=== PATIENT | female | born 1960 | race Caucasian/White ===

== ENCOUNTER 2017-07-12 12:16 | Day surgery (SDC) | payer MEDICAID ==
[~2017-07-12] VITALS: Ht 175.3 cm; Wt 77.3 kg
[~2017-07-12 12:16] MED LIST: DIAZ5TAB PO; HYDR-3965 PO
[2017-07-12] MEDS ORDERED: MIDAZolam 1mg/ml 10ml vial ONE (12:32)
[2017-07-12] MEDS ORDERED: fentaNYL/PF 50MCG/1 ML 2ML syringe ONE (12:32)
[2017-07-12] MEDS ORDERED: PRED20TA PO (12:40)
[2017-07-12] MEDS ORDERED: DIAZ5TAB4 PO (12:41)
[2017-07-12] MEDS ORDERED: ACET1TAB12 PO (12:41)
[2017-07-12 12:53] VITALS: BP 150/87
[2017-07-12 13:50] VITALS: BP 129/88
[2017-07-12 14:00] VITALS: BP 128/78
[2017-07-12 14:10] VITALS: BP 124/72
[2017-07-12 14:20] VITALS: BP 135/92
[2017-07-12 14:25] LABS: BASOPHILS # (AUTO) 0.1 X10'3 (0-0.2); BASOPHILS % (AUTO) 1.1 % (0-1); EOSINOPHILS # (AUTO) 0.2 X10'3 (0-0.9); EOSINOPHILS % (AUTO) 1.5 % (0-6); HEMATOCRIT 42.2 % (35.0-45.0); HEMOGLOBIN 13.9 g/dl (12.0-16.0); LYMPHOCYTES # (AUTO) 5.3 X10'3 (1.1-4.8); LYMPHOCYTES % (AUTO) 37.4 % (21-51); MEAN CORPUSCULAR HEMOGLOBIN 31.7 PG (27.0-31.0); MEAN CORPUSCULAR HGB CONC 33.1 % (33.0-36.5); MEAN CORPUSCULAR VOLUME 95.7 FL (78-98); MONOCYTES % (AUTO) 6.8 % (2-12); NEUTROPHILS # (AUTO) 7.6 X10'3 (1.8-7.7); NEUTROPHILS % (AUTO) 53.2 % (42-75); PLATELET COUNT 376 X10'3 (140-440); RED BLOOD COUNT 4.41 X10'6 (4.20-5.60); RED CELL DISTRIBUTION WIDTH 15.5 % (11.5-14.5); WHITE BLOOD COUNT 14.2 X10'3 (4.5-11.0)
== END 2017-07-12 14:29 | disposition home or self-care (01) ==
LOC: GI LAB 12:16
PROVIDERS: ATTEND Internal Medicine Gastroenterology
DX: K52.9 Noninfective gastroenteritis and colitis, unspecified (principal); Z90.710 Acquired absence of both cervix and uterus; Z87.820 Personal history of traumatic brain injury; Z87.891 Personal history of nicotine dependence; Z90.49 Acquired absence of other specified parts of digestive tract; Z90.410 Acquired total absence of pancreas; Z79.899 Other long term (current) drug therapy; Z88.6 Allergy status to analgesic agent; Z88.3 Allergy status to other anti-infective agents; Z88.8 Allergy status to other drugs, medicaments and biological substances; Z98.890 Other specified postprocedural states
CPT/HCPCS: 36415; 45330; 85025; J2250; J3010; J7030; A4620; G0500

== ENCOUNTER 2018-05-23 13:57 | Emergency (ER) | payer MEDICAID ==
[~2018-05-23] VITALS: Ht 175.3 cm; Wt 77.3 kg
[~2018-05-23 13:57] MED LIST changes: +ACET1TAB12 PO; -DIAZ5TAB PO; +DIAZ5TAB4 PO; -HYDR-3965 PO; +PRED20TA PO
[2018-05-23] MEDS ORDERED: normal saline 1000ML IV soln IVB ONE ×2 (14:30)
[2018-05-23] MEDS ORDERED: ondansetron/PF 4mg/2ml inj IV ONE (14:30)
[2018-05-23] MEDS ORDERED: LORazepam 2 mg/ml vial IV ONE (14:30)
[2018-05-23] MEDS ORDERED: morphine 4 MG/ML inj SYRINge IV ONE (14:30)
[2018-05-23 15:06] LABS: CLARITY,URINE CLEAR (Clear); COLOR,URINE YELLOW (Yellow); GLUCOSE, URINE NEGATIVE (Neg); KETONES,URINE NEGATIVE (Neg); LEUKOCYTE ESTERASE ,URINE NEGATIVE (Neg); NITRITES, URINE POSITIVE (Neg); OCCULT BLOOD,URINE TRACE-INTACT (Neg); PROTEIN,URINE NEGATIVE (Neg); UA COLLECTION TYPE STRAIGHT CATH; UROBILINOGEN,URINE 0.2 E.U/dL (0.2-1.0)
[2018-05-23 15:07] LABS: BACTERIA,URINE 3+ /HPF (Neg); MUCUS STRANDS NONE SEEN /LPF (Neg); RBC,URINE 0-2 /HPF (0-2); SQUAMOUS EPITHELIAL CELL,UR FEW /LPF (FEW)
[2018-05-23 15:33] LABS: ALANINE AMINOTRANSFERASE 23 U/L (12-78); ALBUMIN/GLOBULIN RATIO 0.8 (1.1-1.5); ALKALINE PHOSPHATASE 89 IU/L (46-116); ANION GAP 15 (8-16); ASPARTATE AMINO TRANSFERASE 19 U/L (10-37); BASOPHILS % (AUTO) 0.2 % (0-1); BILIRUBIN,TOTAL 0.5 MG/DL (0.1-1.0); BLOOD UREA NITROGEN 7 MG/DL (7-18); BUN/CREATININE RATIO 8.9 (6.6-38.0); CALCIUM 9.2 MG/DL (8.5-10.1); CHLORIDE 96 MMOL/L (99-107); CREATININE 0.79 MG/DL (0.40-0.90); EOSINOPHILS % (AUTO) 0.4 % (0-6); GLUCOSE 143 MG/DL (70-104); HEMATOCRIT 43.7 % (35.0-45.0); HEMOGLOBIN 14.4 g/dl (12.0-16.0); LIPASE 54 U/L (73-393); LYMPHOCYTES # (AUTO) 0.7 X10'3 (1.1-4.8); LYMPHOCYTES % (AUTO) 6.4 % (21-51); MEAN CORPUSCULAR HEMOGLOBIN 30.8 PG (27.0-31.0); MEAN CORPUSCULAR HGB CONC 32.9 % (33.0-36.5); MEAN CORPUSCULAR VOLUME 93.7 FL (78-98); MEAN PLATELET VOLUME 9.6 FL (7.4-10.4); MONOCYTES # (AUTO) 1.1 X10'3 (0-0.9); MONOCYTES % (AUTO) 10.7 % (2-12); NEUTROPHILS # (AUTO) 8.5 X10'3 (1.8-7.7); NEUTROPHILS % (AUTO) 82.3 % (42-75); PLATELET COUNT 297 X10'3 (140-440); POTASSIUM 3.1 MMOL/L (3.5-5.1); RED BLOOD COUNT 4.66 X10'6 (4.20-5.60); RED CELL DISTRIBUTION WIDTH 13.6 % (11.5-14.5); SODIUM 134 MMOL/L (135-145); TOTAL CARBON DIOXIDE 23.5 MMOL/L (24-32); TOTAL PROTEIN 8.8 G/DL (6.4-8.2); WHITE BLOOD COUNT 10.3 X10'3 (4.5-11.0); eGFR 76 ML/MIN
[2018-05-23] MEDS ORDERED: iohexol 300mg/ml 100ml inj. ONE (15:58)
[2018-05-23] MEDS ORDERED: SULF1TAB49 PO (17:09)
[2018-05-23 17:58] VITALS: BP 124/87
== END 2018-05-23 18:05 | disposition home or self-care (01) ==
LOC: ER 13:58
DX: N39.0 Urinary tract infection, site not specified (principal); R10.13 Epigastric pain; G89.29 Other chronic pain; F12.10 Cannabis abuse, uncomplicated; Z90.49 Acquired absence of other specified parts of digestive tract; Z90.710 Acquired absence of both cervix and uterus; Z88.6 Allergy status to analgesic agent; Z88.1 Allergy status to other antibiotic agents
CPT/HCPCS: 36415; 71045; 74177; 80053; 81001; 83690; 85025; 87077; 87088; 87186; 96374; 96375; 99284; J2060; J2270; J2405; J7030; Q9967